=== PATIENT | female | born 1935 | race Caucasian/White ===

== ENCOUNTER 2018-09-14 17:35 | Emergency (ER) | payer MEDICARE ==
[2018-09-14] MEDS ORDERED: ACETAMINOPHEN 325 MG TAB PO ONE (17:49)
--- NOTE | 2018-09-14 17:52 | Emergency Department Record ---
History of Present Illness - General Chief Complaint: Fall Injury Stated Complaint: FALL/TRIP HIT HEAD Time Seen by Provider: 09/14/18 17:47 Source: Patient Mode of Arrival: Wheelchair Limitations: No limitations - History of Present Illness Initial Comments: The patient is here due to a trip and fall at home about an hour ago. She tripped walking in the door and fell forward hitting her head on the floor. The patient denies any LOC or neck pain but does have a mild ADAME. She was walking normally after the injury and presently denies any neck pain. Her Td is UTD. MD Complaint: Fall Onset/Timin Fall From: Other When Fall Occurred: Just prior to arrival, 1 hour [employer] Fall Witnessed: Yes, by family Place Fall Occurred: Home Loss of Consciousness: None Prolonged Down Time?: No Symptoms Prior to Fall: None Location: Head Severity scale (1-10): 9 Quality: Aching Associated Symptoms: Denies - [place] Coma Scale Eye Response: (4) Open spontaneously Motor Response: (6) Obeys commands Verbal Response: (5) Oriented [place] Total: 15 - Related Data Home Medications Medication Instructions Recorded Confirmed Last Taken Aspirin [Aspir-Low] 81 mg PO DAILY 09/14/18 09/14/18 09/13/18 Atenolol 50 mg PO DAILY 09/14/18 09/14/18 09/13/18 Calcium Carbonate [Calcium] 600 mg PO DAILY 09/14/18 09/14/18 09/13/18 Fluticasone Propionate [Flonase] 2 spray EACH NARES DAILY 09/14/18 09/14/18 09/13/18 Montelukast Sodium [Singulair] 10 mg PO DAILY 09/14/18 09/14/18 09/13/18 Simvastatin 40 mg PO DAILY 09/14/18 09/14/18 09/13/18 Vitamin B Complex 1 each PO DAILY 09/14/18 09/14/18 09/13/18 Allergies Allergy/AdvReac Type Severity Reaction Status Date / Time amoxicillin [From Amoxil] Allergy PT UNSURE Verified 09/14/18 17:53 OF REACTION codeine Allergy RASH Verified 09/14/18 17:53 hydroxyzine [From Vistaril] Allergy HYPERSENSIT Verified 09/14/18 17:53 IVITY hyoscyamine Allergy HYPERSENSIT Verified 09/14/18 17:53 IVITY latex Allergy RASH Verified 09/14/18 17:53 meperidine [From Demerol] Allergy PT UNSURE Verified 09/14/18 17:53 OF REACTION secobarbital [From Seconal] Allergy HYPERSENSIT Verified 09/14/18 17:53 IVITY niacin AdvReac FLUSHING Verified 09/14/18 17:53 Travel Screening - Travel/Exposure Within Last 30 Days Have you traveled within the last 30 days?: No - Travel/Exposure Within Last Year Have you traveled outside the [place] in the last year?: No - Additonal Travel Details Have you been exposed to anyone with a communicable illness?: No - Travel Symptoms Symptom Screening: Headache Review of Systems Constitutional: Denies: Chills, Fever Eyes: Denies: Eye discharge ENT: Denies: Congestion Respiratory: Denies: Cough, Dyspnea Past Medical History - SOCIAL HISTORY Smoking Status: Never smoker Alcohol Use: None Drug Use: None - RESPIRATORY Hx Respiratory Disorders: No - CARDIOVASCULAR Hx Cardio Disorders: Yes Hx Palpitations: Yes - NEURO Hx Neuro Disorders: No - GI Hx GI Disorders: Yes Hx Diverticulitis: Yes - Hx Genitourinary Disorders: No - ENDOCRINE Hx Endocrine Disorders: No - MUSCULOSKELETAL Hx Musculoskeletal Disorders: Yes Comment:: osteoarthritis - PSYCH Hx Psych Problems: No - HEMATOLOGY/ONCOLOGY Hx Hematology/Oncology Disorders: No Family Medical History Any Significant Family History?: No Physical Exam - General General Appearance: Alert, Oriented x3, Cooperative, No acute distress - Head Head exam: Normocephalic (There is a superficial 1.5 cm lac over the R eyebrow.). negative: Atraumatic, Normal inspection - Eye Eye exam: Normal appearance, PERRL, EOMI - Neck Neck exam: Normal inspection, Full ROM. negative: Tenderness - Respiratory Respiratory exam: Normal lung sounds bilaterally. negative: Respiratory distress - Cardiovascular Cardiovascular Exam: Regular rate, Normal rhythm, Normal heart sounds - Extremities Extremities exam: Normal inspection, Full ROM, Normal capillary refill. negative: Tenderness - Neurological Neurological exam: Alert, Normal gait, Oriented X3, Other (Neg Drift and Rhomberg exams.). negative: Abnormal gait, Altered, Motor sensory deficit - Psychiatric Psychiatric exam: negative: Anxious - Skin Skin exam: negative: Rash Course Vital Signs 09/14/18 17:36 Temperature 98.0 F Pulse Rate 73 Respiratory 16 Rate Blood Pressure 157/82 Pulse Ox 96 - Reevaluation(s) Reevaluation #1: Procedure note: The R eyebrow wound anesth. with 1 cc Lido with Epi and the wound was prepped with betadine and lavaged with sterile saline. The wound was superficial and not thru the dermis. The lac was closed with 3 5.0 nylon sutures. There were no complications. 09/14/18 18:10 Reevaluation #2: The patient is doing very well at this time. She did have some nausea over in xray but is better now. The patient is up walking with normal balance and gait and presently is smiling and laughing with family. 09/14/18 18:37 Reevaluation #3: The patient is doing well at this time. Her ADAME is resolving and she no longer has any nausea. She feels ready for home. I did explain that we are still waiting on the CT results and will discharge if neg. 09/14/18 18:50 Medical Decision Making - Data Complexity MDM Data: X-Ray Ordered and/or Reviewed - Radiology Data Radiology results: Report reviewed (Head and Cervical CT: neg per Rad.) Disposition Disposition: Discharge Clinical Impression: Laceration of eyebrow Qualifiers: Encounter type: initial encounter Laterality: right Qualified Code(s): S01.111A - Laceration without foreign body of right eyelid and periocular area, initial encounter Disposition: Home, Self-Care Condition: (2) Stable Instructions: Laceration (ED), Head Injury (ED) Additional Instructions: Please take Tylenol for pain and rest. Keep the laceration dry for 2 days and cover with Abx ointment and a bandaid during the day. Return to the ER for any worsening headache, nausea, vomiting, confusion or balance issues. Have the sutures removed in a week. Forms: Patient Portal Access Time of Disposition: 18:40 Quality - Quality Measures Quality Measures: N/A - Blood Pressure Screening View Details: Yes Does Patient Have Any of the Following: No Blood Pressure Classification: Hypertensive Reading Systolic Measurement: 155 Diastolic Measurement: 62 Screening for High Blood Pressure: < First Hypertensive BP, F/U Documented > [G8950] First Hypertensive Follow-up Interventions: Referral to alternative/primary care provider.
--- NOTE | 2018-09-16 12:38 | CT SCAN REPORT ---
EXAM: HEAD CT HISTORY: FALL, HEAD INJURY. TECHNIQUE: Noncontrast head CT was obtained. Comparison: None. FINDINGS: Mild prominence of the ventricles and subarachnoid spaces compatible with atrophy. There is no mass or mass effect. No intra or extraaxial hemorrhage. No CT evidence for large acute territorial infarct. No fracture or acute osseous abnormality. The sinuses are clear. IMPRESSION: 1. ATROPHY AND MILD CHRONIC SMALL VESSEL ISCHEMIC CHANGE. 2. NO MASS, HEMORRHAGE OR ACUTE INTRACRANIAL PROCESS. J[facility]: [id number] [facility]
--- NOTE | 2018-09-16 12:41 | CT SCAN REPORT ---
EXAM: CT OF THE CERVICAL SPINE HISTORY: INJURY, PAIN. TECHNIQUE: CT of the cervical spine was performed without contrast. Comparison: None. FINDINGS: No fracture identified. There is no soft tissue swelling. There is disk space narrowing at C4-C5, C5-C6, and C6-C7. There is degenerative end plate spurring at these levels. There is neural foraminal narrowing on the right at C4-C5. There is mild neural foraminal narrowing bilaterally at C5-C6. There are advanced facet arthritic changes on the left at C3-C4. The upper lungs and upper mediastinum are unremarkable. IMPRESSION: 1. NO FRACTURE OR ACUTE OSSEOUS ABNORMALITY. 2. MULTILEVEL DEGENERATIVE CHANGES. 3. OTHER FINDINGS ABOVE. J[facility]BER: [id number] [facility]
== END 2018-09-14 19:10 | disposition home or self-care (01) ==
LOC: ER 17:35
DX: S01.111A Laceration without foreign body of right eyelid and periocular area, initial encounter (principal); R51 Headache; R11.0 Nausea; W01.198A Fall on same level from slipping, tripping and stumbling with subsequent striking against other object, initial encounter; Y92.009 Unspecified place in unspecified non-institutional (private) residence as the place of occurrence of the external cause
CPT/HCPCS: 12011; 70450; 72125; 99283; 99284

== ENCOUNTER 2018-09-21 16:42 | Emergency (ER) | payer MEDICARE ==
--- NOTE | 2018-09-21 16:55 | Emergency Department Record ---
History of Present Illness - General Stated Complaint: STITCHES REMOVAL Time Seen by Provider: 09/21/18 16:50 Source: Patient Mode of Arrival: Ambulatory Limitations: No limitations - History of Present Illness Initial comments: The patient is here for suture removal. She denies any problems. Onset/Timin -: Week(s) - Related Data Allergies Allergy/AdvReac Type Severity Reaction Status Date / Time amoxicillin [From Amoxil] Allergy PT UNSURE Verified 09/14/18 17:53 OF REACTION codeine Allergy RASH Verified 09/14/18 17:53 hydroxyzine [From Vistaril] Allergy HYPERSENSIT Verified 09/14/18 17:53 IVITY hyoscyamine Allergy HYPERSENSIT Verified 09/14/18 17:53 IVITY latex Allergy RASH Verified 09/14/18 17:53 meperidine [From Demerol] Allergy PT UNSURE Verified 09/14/18 17:53 OF REACTION secobarbital [From Seconal] Allergy HYPERSENSIT Verified 09/14/18 17:53 IVITY niacin AdvReac FLUSHING Verified 09/14/18 17:53 Past Medical History - SOCIAL HISTORY Smoking Status: Never smoker Drug Use: None - RESPIRATORY Hx Respiratory Disorders: No - CARDIOVASCULAR Hx Cardio Disorders: Yes Hx Palpitations: Yes - NEURO Hx Neuro Disorders: No - GI Hx GI Disorders: Yes Hx Diverticulitis: Yes - Hx Genitourinary Disorders: No - ENDOCRINE Hx Endocrine Disorders: No - MUSCULOSKELETAL Hx Musculoskeletal Disorders: Yes Comment:: osteoarthritis - PSYCH Hx Psych Problems: No - HEMATOLOGY/ONCOLOGY Hx Hematology/Oncology Disorders: No Physical Exam - General General Appearance: Alert, Cooperative, No acute distress - Head Head exam: Normocephalic (The 3 sutures were removed without any problems.). negative: Atraumatic Disposition Disposition: Discharge Clinical Impression: Visit for suture removal Disposition: Home, Self-Care Condition: (2) Stable Instructions: Stitches Removal (ED) Additional Instructions: Return to the ER for any problems. Time of Disposition: 16:55 Quality - Quality Measures Quality Measures: N/A - Blood Pressure Screening View Details: Yes Does Patient Have Any of the Following: No Systolic Measurement: ~ Screening for High Blood Pressure: < First Hypertensive BP, F/U Documented > [G8950] First Hypertensive Follow-up Interventions: Referral to alternative/primary care provider.
== END 2018-09-21 17:12 | disposition home or self-care (01) ==
LOC: ER 16:42
DX: Z48.02 Encounter for removal of sutures (principal)